=== PATIENT | female | born 1980 ===

== ENCOUNTER 2021-01-16 14:50 | Emergency (ER) | payer OTHER ==
[~2021-01-16] VITALS: Ht 162.6 cm; Wt 65.0 kg
[2021-01-16 15:10] VITALS: BP 125/71
== END 2021-01-16 18:55 | disposition home or self-care (01) ==
LOC: ED 15:00
DX: U07.1 COVID-19 (principal); J06.9 Acute upper respiratory infection, unspecified; R07.89 Other chest pain
CPT/HCPCS: 71045; 93005; 99283